=== PATIENT | male | born 1990 | race Caucasian/White ===

== ENCOUNTER → 2019-01-22 | Outpatient (REF) ==
--- NOTE | 2019-01-22 10:28 | RADIOLOGY IMAGING REPORT ---
FACILITY: PATIENT NAME: Ayush Martinez : 1990 MR: [id number] V: [id number] EXAM DATE: ORDERING PHYSICIAN: STEVEN COCHRAN TECHNOLOGIST: Location: [facility] [place] Patient: Ayush Martinez : 1990 Visit/Account:[id number] Date of Sevice: 01/22/2019 Exam type: CHEST SINGLE AP History: Work care physical Comparison: November 24, 2014. Findings: The lungs are free of acute effusions, infiltrates or edema. There is no evidence of cavitary lesion s. The cardiac silhouette is normal in size. The visualized bones are unremarkable for age. IMPRESSION: 1. No acute cardiac pulmonary process is seen Report Dictated By: Sandy Castillo MD at 01/22/2019 10:03 AM Report E-Signed By: Sandy Castillo MD at 01/22/2019 10:24 AM WSN:[email or web address]
== END ==
LOC: RAD 09:30
PROVIDERS: ATTEND Physician Assistant
DX: Z02.79 Encounter for issue of other medical certificate (principal)
CPT/HCPCS: 71045